=== PATIENT | female | born 1995 | race Caucasian/White ===

== ENCOUNTER 2016-05-20 15:43 | Outpatient (CLI) ==
[2016-05-20 16:01] LABS: BILIRUBIN,URINE Negative (NEGATIVE); KETONES,URINE Negative (NEGATIVE); LEUKOCYTE ESTERASE ,URINE 1+ (NEGATIVE); NITRITE,URINE Negative (NEGATIVE); PH,URINE 5.5 (5-9); PROTEIN,URINE Trace (NEGATIVE); URINE, BLOOD 3+ (NEGATIVE)
[2016-05-20 16:03] LABS: ADD URINE MICROSCOPIC YES
[2016-05-20 16:04] LABS: BACTERIA,URINE 1+ (NOT PRESENT)
[2016-05-20 16:35] LABS: SERUM PREGNANCY INTERNAL QC INTERNAL QC VALID
== END 2016-05-20 15:44 | disposition home or self-care (01) ==
LOC: LAB 15:43
PROVIDERS: ATTEND Family Medicine
DX: N91.2 Amenorrhea, unspecified (principal); Z87.440 Personal history of urinary (tract) infections
CPT/HCPCS: 36415; 81001; 84703; 87086

== ENCOUNTER 2016-06-01 16:43 | Outpatient (CLI) ==
[2016-06-01 17:03] LABS: BILIRUBIN,URINE Negative (NEGATIVE); KETONES,URINE Negative (NEGATIVE); LEUKOCYTE ESTERASE ,URINE 2+ (NEGATIVE); NITRITE,URINE Negative (NEGATIVE); PROTEIN,URINE Negative (NEGATIVE); URINE, BLOOD Negative (NEGATIVE)
[2016-06-01 17:04] LABS: ADD URINE MICROSCOPIC YES
[2016-06-01 17:05] LABS: BACTERIA,URINE TRACE (NOT PRESENT)
[2016-06-01 17:21] LABS: SERUM PREGNANCY INTERNAL QC INTERNAL QC VALID
== END 2016-06-01 16:44 | disposition home or self-care (01) ==
LOC: LAB 16:43
PROVIDERS: ATTEND Family Medicine
DX: N91.2 Amenorrhea, unspecified (principal); Z87.440 Personal history of urinary (tract) infections
CPT/HCPCS: 36415; 81001; 84703